=== PATIENT | female | born 1955 | race Caucasian/White ===

== ENCOUNTER → 2020-09-13 | Outpatient (CLI) | payer MEDICARE | LOC: KOH-I 10:58 | DX: M47.26 Other spondylosis with radiculopathy, lumbar region (principal); N20.0 Calculus of kidney | CPT/HCPCS: 72100 ==

== ENCOUNTER → 2020-12-23 | Outpatient (CLI) | payer MEDICARE | LOC: KOH-I 10:30 | DX: N20.0 Calculus of kidney (principal) | CPT/HCPCS: 74176 ==

== ENCOUNTER → 2021-01-03 | Outpatient (CLI) | payer MEDICARE | LOC: KOH-I 12:42 | DX: N28.9 Disorder of kidney and ureter, unspecified (principal) | CPT/HCPCS: 76775 ==

== ENCOUNTER → 2021-02-01 | Outpatient (CLI) | payer MEDICARE | LOC: CT 09:17 | DX: N28.9 Disorder of kidney and ureter, unspecified (principal); N28.1 Cyst of kidney, acquired | CPT/HCPCS: 36415; 74170; 82565; 84520; Q9967 ==